=== PATIENT | female | born 1985 ===

== ENCOUNTER 2018-11-22 14:29 | Inpatient (IN) | payer OTHER ==
[2018-11-22] MEDS ORDERED: SENNOSIDES 17.6 MG/10 ML UDL PO PRN (18:51)
[2018-11-22] MEDS ORDERED: MAGNESIUM HYDROXIDE 30 ML UDCUP PO PRN (18:51)
[2018-11-22] MEDS ORDERED: ACETAMINOPHEN 325 MG TAB PO PRN (18:51)
[2018-11-22] MEDS ORDERED: MAG HYDROX/AL HYDROX/SIMETH 30 ML UDCUP PO PRN (18:51)
[2018-11-22] MEDS ORDERED: GABAPENTIN 100 MG CAP PO PRN (18:55)
[2018-11-22] MEDS ORDERED: CALCIUM CARBONATE 500 MG CHEWABLE TAB PO PRN (18:55)
[2018-11-22] MEDS ORDERED: DIAZEPAM 5 MG TAB PO ONE (18:56)
[2018-11-22] MEDS ORDERED: MAGNESIUM OXIDE 400 MG TAB PO ONE (18:57)
--- NOTE | 2018-11-22 21:29 | GHP ---
[f rep st] HISTORY AND PHYSICAL DATE OF ADMISSION: 11/22/2018 TIME OF EVALUATION: 6:15 p.m. REFERRING FACILITY: [facility]. REFERRING PHYSICIAN: Dr. Ngo IMPAIRMENT GROUP: 3.9-other neurological condition. DATE OF ONSET: 11/18/2018. POST ADMISSION PHYSICAL EVALUATION AND REHABILITATION TREATMENT PLAN: REHAB DIAGNOSIS: Gait dysfunction, lower extremity weakness. Upper and lower extremity sensory distu rbance. ETIOLOGICAL DIAGNOSIS: Weakness. HISTORY OF PRESENT ILLNESS: The patient is a 33-year-old female who was admitted to [facility] ICU on 11/18/2018, with progressive bilateral lower extremity weakness and nu mbness which began in her lower extremities sometime in September. She was noted to have had ETOH use around the holidays. She states that she has been drinking five 1 ounce drinks for at least 2 years. By medical record review, she was initially seen by a neurologist on 11/09/2018, with simil ar complaints. She could not provide any further details regarding that visit and no medical records pertaining to that visit were available. On the day of admission to [facility], she presente d with worsening paresthesias and weakness involving the upper and lower extremities with some progre ssion into the abdomen. She also noted progressive difficulty with ambulation. MRI of the brain and c ervical spine were obtained through the emergency department and were read as unremarkable, according to the medical records. Neurology consultation was obtained on 11/16/2018. A lumbar puncture was per formed and was reportedly negative. No definitive diagnosis was made pertaining to her symptoms. The patient does relate that leading up to the admission she had been increasingly sedentary due to nigel rns about falling. She had been sleeping in the downstairs floor of her house due to difficulty with stairs. She had also noted some possible decreased finger dexterity. She was participating in both ph ysical and occupational therapy sessions during the admission. She states that she has not been doing much walking. STUDIES AND LABS DURING RECENT HOSPITALIZATION: Sodium 139, potassium 3.3, glucose 168. ESR 61. C-re active protein 31. B12 level 840. Alk phosphatase 404, aspartate aminotransferase 570. Total bilirubi n 1.4. Total serum protein 8.3. White blood count 12.3, hemoglobin 10, hematocrit 3.12. Cervical spine MRI without contrast obtained 11/16/2018, unremarkable. MRI of the brain obtained 10/19, showed no significant abnormalities identified according to the radiologist's report. PRECAUTIONS FALL RISK: Seizure risk due to possible alcohol withdrawal. ACTIVE COMORBIDITIES: Type 2 diabetes, diet controlled. PAST MEDICAL HISTORY: Acid reflux. Anxiety. Hypertension. Alcohol abuse. Morbid obesity. PAST SURGICAL HISTORY: Lasix procedure. ADMISSION MEDICATIONS: B complex with vitamin C. Metoprolol succinate 50 mg XL. Thiamin 100 mg. Tracy pentin 200 mg three times daily. Calcium carbonate 200 mg p.r.n. heartburn. Nexium 20 mg p.r.n. heart burn. Ibuprofen. ALLERGIES: Macrobid. SOCIAL HISTORY: . Nonsmoker. History of alcohol abuse. Lives at home with her . 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 Reports also employed. She was completely function ally independent prior to recent hospitalization. FAMILY HISTORY: Noncontributory. REVIEW OF SYSTEMS: CARDIAC: Reports rapid heart rate. Denies chest pain. PULMONARY: Denies shortness of breath or productive cough. CONSTITUTION: Denies fever, chills, or night sweats. Denies feeling m alaise prior to onset of symptoms. SKIN: Denies rash. Denies recent travel out of the country. Denies recent immunization. : Denies urea or hematuria. Reports she is continent of bladder. GI: Reports continence of bowel. Denies abdominal pain. SKIN: Denies rash. NEUROLOGIC: Reports patchy loss of sen sation in both upper and lower extremities, slightly more pronounced in the lower extremities. Report s decreased roving winder strength. Reports weakness of both lower extremities, not described in the specific peripheral nerve root or myotomal distribution. Reports patchy decreased sensation both lower extremi ties. PHYSICAL EXAM: CONSTITUTION: WD, WN, heavyset female. Appears moderately anxious. Required assist of 2 to go from the Care[employer]tend to her bed. PSYCH: Anxious. Alert and oriented x3. NEUROLOGIC: Cranial n erves 2-12 grossly intact. Possible right nystagmus. Dysmetria noted when performing finger to nose. Upper extremity motor: She demonstrates better than antigravity strength of the shoulder girdle muscl es, biceps, triceps, and wrist and finger extensors. However, a nonphysiologic ratchety-type movement was noted. Lower extremity motor: 4/5 right and left hip flexors, quadriceps, hamstrings. 2+ to 3-/5 right and left ankle dorsiflexors. Patient noted to invert ankles when testing ankle plantar flexion , which was 3-/5. No clonus. Negative Ross's test. Patchy loss to light touch dermatomes L3-S1 bot h lower extremities, which was inconsistent on serial testing. Decreased proprioception noted in both lower extremities. HEENT: Pupils equal, round, reactive to light and accommodation. Sclerae nonicter ic. NECK: Supple. No JVD. CARDIAC: Tachycardiac at 133. Blood pressure pending. Could not appreciate murmurs, rubs, or gallops, but this may have been obscured secondary to tachycardia. Normal periphera l pulses. No lower extremity edema. ABDOMEN: Soft, nontender. The liver is palpated beneath the espana l margin. Normoactive bowel sounds all 4 quadrants. : No CVA tenderness. No suprapubic tenderness. No catheter in place. SKIN: Contact dermatitis rash noted in the perineal area. MUSCULOSKELETAL: Norm al and pain free range of motion right and left glenohumeral joints, elbows, wrists, hips, knees, and ankles. LEVEL OF FUNCTION: Per the preadmission screen. Diet/feeding/swallowing, regular diet. Grooming to b e determined, bathing to be determined. Lower body dressing moderate assist for socks. max assist to don pants. Toileting to be determined. Bladder to be determined. Bowel to be determined. Bed mobility , contact guard assist supine to sit with significant cuing. Transfers: Max assist x2 with FWW contac t guard assist. Mid-mod x2 for slide board transfer. Equipment FWW, Jazmine Fan. Balance impaired. End urance fair to good. Gait, unable to ambulate at this time. Wheelchair and stairs to be determined. C ommunication intact. Cognitive: Frequent cuing and redirection secondary to anxiety. Safety precautio ns, fall risks. Possible EtOH withdrawal risk. IMPRESSION/PLAN: 1. Gait dysfunction. Bilateral lower extremity weakness and sensory impairment of undetermined etiol ogy. Workup at [facility] included unremarkable MRIs of the brain and cervical spine. Lumbar puncture was reported as negative. Had Neurology consultation at that time, and lower extremity EMG/ nerve conduction study is recommended as outpatient. We will obtain consult for physical and occupati onal therapy to address upper and lower extremity strengthening respectively, improve gait, improve t runk strength/core strength and mobility. Address bed mobility, ability to perform transfers as well as self-care including toileting, grooming and hygiene. 2. Hypomagnesemia: Will implement supplemental magnesium and repeat level in 3 days. 3. Hypertension: Continue metoprolol succinate 50 mg XL. 4. Alcohol abuse: Encouraged continued abstinence. Will review with patient the effects of alcohol o n her neurological system. Consider Psych services evaluation for substance abuse counseling. 5. Obesity: Dietary consult. Will place on 1500 calorie ADA diet. 6. Type 2 diabetes: The patient indicates this was previously managed with diet and this was confirm ed with the case finishing machine adjuster up at [facility] today per my discussion with him. Will recheck hem oglobin A1c at some point during her hospital course. Consider starting hypoglycemics if hemoglobin A 1c is elevated. 7. Gastroesophageal reflux disease: Continue Nexium. Avoid lying supine after eating meals. 8. ? Peripheral neuropathy: Lower extremities paresthesias ? ETOH related. Continue B complex. Melody nue thiamine. Outpatient EMG/nerve conduction studies may help shed light on whether there is a senso ry and/or motor polyneuropathy. 9. Neuropathic pain: Continue gabapentin 200 mg three times daily. 10. Anxiety: The patient is quite anxious and tachycardic with heart rate at 133. She requested Ativ an. We will give a 1 time dose of 5 mg of Valium tonight. 11. Prophylaxis: a. Gastrointestinal: Continue Nexium. b. Deep venous thrombosis: With patient's age and lack of comorbid medical conditions she is at low risk for developing deep venous thrombosis and therefore will courage ambulation. Copy requested to: Joshua Shah /[id number]/MODL
[2018-11-23] MEDS: METOPROLOL SUCCINATE XR 50 MG TAB PO SCH (08:48)
[2018-11-23] MEDS: VITAMIN B COMPLEX 1 EA CAP/TAB PO SCH (08:49)
[2018-11-23] MEDS: PANTOPRAZOLE SODIUM 40 MG TAB PO SCH (08:49)
[2018-11-23] MEDS: THIAMINE HCL 100 MG TAB PO SCH (08:49)
--- NOTE | 2018-11-23 09:31 | PDOREHIP ---
Admission [facility] - Admission - 3 Day Assessment Period Admission Date/Day 1: 11/22/18 Day 2: 11/23/18 Day 3: 11/24/18 - Active Diagnoses Comorbidities and Co-existing Conditions at Admission: 96072. DM (e.g. diabetic retinopathy, nephropathy, and neuropathy) (Type 2 diabetes currently managed with diet) - Skin Conditions # Stage 1 Pressure Ulcers-Admission: 0 # Stage 2 Pressure Ulcers-Admission: 0 # Stage 3 Pressure Ulcers-Admission: 0 # Stage 4 Pressure Ulcers-Admission: 0 # Unstageable Pressure Ulcers (Non-remove Dress)-Admission: 0 # Unstageable Pressure Ulcers (Slough/Eschar)-Admission: 0 # Unstageable Pressure Ulcers (Deep Tissue Injury)-Admission: 0
--- NOTE | 2018-11-23 09:43 | SOAPPROG ---
SOAP Progress Note Assessment/Plan: Assessment: MPRESSION/PLAN: 1. Gait dysfunction. Bilateral lower extremity weakness and sensory impairment of undetermined etiology. Workup at [facility] included unremarkable MRIs of the brain and cervical spine. Lumbar puncture was reported as negative. Had Neurology consultation at that time, and lower extremity EMG/nerve conduction study is recommended as outpatient. We will obtain consult for physical and occupational therapy to address upper and lower extremity strengthening respectively, improve gait, improve trunk strength/core strength and mobility. Address bed mobility, ability to perform transfers as well as self -care including toileting, grooming and hygiene. 2. Hypomagnesemia: Will implement supplemental magnesium and repeat level in 3 days. 3. Hypertension: WILL CHANGE METOPROLOL DOSAGE TO 100 XL Q.A.M. 4. Alcohol abuse: Encouraged continued abstinence. Will review with patient the effects of alcohol on her neurological system. Consider Psych services evaluation for substance abuse counseling. 5. Obesity: Dietary consult. Will place on 1500 calorie ADA diet. 6. Type 2 diabetes: The patient indicates this was previously managed with diet and this was confirmed with the pillowcase cleaner up at [facility] today per my discussion with him. Will recheck hemoglobin A1c at some point during her hospital course. Consider starting hypoglycemics if hemoglobin A1c is elevated. GLUCOSE LEVEL 2/5 A.M. 182. WILL ORDER HEMOGLOBIN A1C THIS MORNING 7. Gastroesophageal reflux disease: Continue Nexium. Avoid lying supine after eating meals. 8. ? Peripheral neuropathy: Lower extremities paresthesias ? ETOH related. Continue B complex. Continue thiamine. WILL ORDER BLOOD WORK TODAY FOR PERIPHERAL NEUROPATHY WORKUP TO INCLUDE THYROID FUNCTION TESTS, SERUM PROTEIN ELECTROPHORESIS, GM 1 ANTIBODIES, MYELIN ASSOCIATED GLYCOPROTEIN ANTIBODIES Outpatient EMG/nerve conduction studies may help shed light on whether there is a sensory and/or motor polyneuropathy. 9. Neuropathic pain: Continue gabapentin 200 mg three times daily. 10. Anxiety: The patient is quite anxious and tachycardic with heart rate at 133. She requested Ativan. We will give a 1 time dose of 5 mg of Valium tonight. 11. Prophylaxis: Gastrointestinal: Continue Nexium. Deep venous thrombosis: With patient's age and lack of comorbid medical conditions she is at low risk for developing deep venous thrombosis and therefore will courage ambulation. Subjective: She reports that she did not sleep well last night. Otherwise no new complaints. Objective: Vital Signs Temp Pulse Resp BP Pulse Ox 36.6 C 118 H 20 144/99 H 96 11/23/18 08:00 11/23/18 08:48 11/23/18 08:00 11/23/18 08:48 11/23/18 08:00 11/22/18 11/23/18 11/24/18 05:59 05:59 05:59 Intake Total 450 Output Total 375 Balance 75 - Pending Discharge Pending Discharge Within 24 Hours: No Pending Discharge Within 48 Hours: No Physical Exam - Physical Exam General Appearance: WD/WN, alert, no apparent distress Respiratory: lungs clear, normal breath sounds Cardiac/Chest: tachycardia, No edema Abdomen: normal bowel sounds, non-tender, soft Extremities: No swelling, No Vanda's sign Neuro/Psych: alert, normal mood/affect, oriented x 3, motor weakness (Diffuse upper and lower extremity motor weakness more pronounced in lower extremities particularly ankle dorsiflexors but has 4+/5 strength of the hip flexors, abductors, adductors, quadriceps and hamstrings. Areflexic upper and lower extremities.), sensory deficit (Patchy decreased to light touch upper and lower extremities in nondermatomal pattern)
[2018-11-23] MEDS: metFORMIN HCL 500 MG TAB PO SCH (11:10)
[2018-11-23] MEDS ORDERED: METOPROLOL SUCCINATE XR 50 MG TAB PO ONE (13:30)
[2018-11-23] MEDS: IBUPROFEN 200 MG TAB PO PRN (16:10)
[2018-11-24] MEDS: IBUPROFEN 200 MG TAB PO PRN ×2 (07:54→17:24)
[2018-11-24] MEDS: PANTOPRAZOLE SODIUM 40 MG TAB PO SCH (08:33)
[2018-11-24] MEDS: VITAMIN B COMPLEX 1 EA CAP/TAB PO SCH (08:34)
[2018-11-24] MEDS: THIAMINE HCL 100 MG TAB PO SCH (08:34)
[2018-11-24] MEDS: metFORMIN HCL 500 MG TAB PO SCH (09:12)
[2018-11-24] MEDS: METOPROLOL SUCCINATE XR 50 MG TAB PO SCH (09:12)
[2018-11-24] MEDS ORDERED: traZODone 50 MG TAB PO PRN (14:30)
--- NOTE | 2018-11-24 14:47 | SOAPPROG ---
SOAP Progress Note Assessment/Plan: Assessment: Neuromuscular disorder of unclear etiology. * SPEP is pending. Evaluation at [facility] including brain MRI, C- spine MRI, CSF studies, was unrevealing. Follow-up with Neurology after discharge for EMG studies. * Initial functional independence measure is 70. Standby assist for bed mobility. Sat at the edge of bed for 10 min with independent balance. Transfers with the Jazmine Stedy require minimal assist to standby assist. She was able to stand for 10 min. She was unwilling to participate in training with a slide board. Grooming and hygiene required minimal assist. Dressing required minimal assist. She complained of hypersensitivity as well as decreased sensation in her hands. Toileting required minimal assist. Shower transfer was done with the Jazmine Stedy and a bath bench. She was independent with bathing including shampooing. * Continue PT and OT. Anxiety and insomnia. * She agrees to initiation of low-dose antidepressant/anxiolytics. Given history of alcohol abuse, benzodiazepines would be contraindicated. Will start citalopram at 5 mg p.o. Q.day and plan to titrate rapidly if it is tolerated. * Trial of melatonin at HS. Will also order trazodone if she is unable to attain sleep within 30-60 minutes of taking melatonin. Alcohol abuse. Unclear if this may contribute to neuromuscular disorder. Continue B12 and thiamine supplementation for now. Obesity. * Dietary consult. Hepatic transaminase elevation in the hospital, with AST 570, ALT 189. May also be a component of cholestasis, with total bilirubin slightly elevated at 1.4 and direct bilirubin with a more significant elevation at 0.8. Alkaline phosphatase was 405. . * May be consistent with steatohepatitis, versus alcohol use. Repeat LFTs on 11/25 to assess trend. Diabetes mellitus type 2. * Hemoglobin A1c was 5.3. Continue metformin. Hypertension. Continue metoprolol. DISPOSITION: Attended staffing, 15 min. Discussed with case management, nursing, dietitian, PT, OT. Insurance sends of improved a 7 day length of stay with a last covered day being 11/28/2018. Anticipate discharge on 11/29/2018. Extensive discussion with patient, 11/24/2018, on possible etiologies including possibility of conversion disorder, and prognosis. Denies any history of huffing nitrous oxide. Agreed to pharmacologic treatment of anxiety. Encouraged focus on improvement rather than "what if " ideation that she reports she has been having. FOLLOW-UP: She is to see neurologist Dr. Zhao Lambert after discharge. She will follow up with her primary care provider as well. 11/24/18 14:47 Subjective: Feels anxious and has not been sleeping well. Objective: Vital Signs Temp Pulse Resp BP Pulse Ox 36.7 C 117 H 20 133/94 H 96 11/24/18 05:14 11/24/18 05:14 11/24/18 05:14 11/24/18 05:14 11/24/18 05:14 11/23/18 11/24/18 11/25/18 05:59 05:59 05:59 Intake Total 450 618 Output Total 375 820 Balance 75 -202 - Time Spent With Patient Time Spent With Patient: Greater than 35 min floor time today, including more than 50% of time in coordination of care during staffing meeting, and counseling patient. Physical Exam - Physical Exam General Appearance: WD/WN, alert, mild distress, obese Respiratory: No respiratory distress, No accessory muscle use Cardiac/Chest: No edema Skin: normal color, warm/dry Neuro/Psych: alert, normal mood/affect, oriented x 3, motor weakness ICD10 Worksheet Patient Problems: Problems Problem Status Onset Neuromuscular disorder Acute - ICD10 Problem Qualifiers (1) Neuromuscular disorder
[2018-11-25] MEDS: IBUPROFEN 200 MG TAB PO PRN (06:12)
[2018-11-25] MEDS: metFORMIN HCL 500 MG TAB PO SCH ×2 (08:02→17:13)
[2018-11-25] MEDS: METOPROLOL SUCCINATE XR 50 MG TAB PO SCH (08:02)
[2018-11-25] MEDS ORDERED: CITALOPRAM 20 MG TAB PO SCH (09:00)
[2018-11-25] MEDS: PANTOPRAZOLE SODIUM 40 MG TAB PO SCH (10:00)
[2018-11-25] MEDS: THIAMINE HCL 100 MG TAB PO SCH (10:00)
[2018-11-25] MEDS: VITAMIN B COMPLEX 1 EA CAP/TAB PO SCH (10:00)
--- NOTE | 2018-11-25 13:40 | SOAPPROG ---
SOAP Progress Note Assessment/Plan: Assessment: Neuromuscular disorder of unclear etiology. * SPEP is negative for monoclonal proteins other lab tests specific to neuropathy and neuromuscular disorders are pending.. Evaluation at [facility] including brain MRI, C-spine MRI, CSF studies, was unrevealing. Follow -up with Neurology after discharge for EMG studies. * Initial functional independence measure is 70. Standby assist for bed mobility. Sat at the edge of bed for 10 min with independent balance. Transfers with the Jazmine Stedy require minimal assist to standby assist. She was able to stand for 10 min. She was unwilling to participate in training with a slide board. Grooming and hygiene required minimal assist. Dressing required minimal assist. She complained of hypersensitivity as well as decreased sensation in her hands. Toileting required minimal assist. Shower transfer was done with the Jazmine Stedy and a bath bench. She was independent with bathing including shampooing. * Continue PT and OT. Anxiety and insomnia. * Given history of alcohol abuse, benzodiazepines would be contraindicated. She declined citalopram today, 11/25/2018. Had further discussion. She agrees to trazodone at . Will order trazodone 50 mg scheduled at bedtime. * There is certainly a behavioral component to her mobility and ADL limitations. Encouraged cooperation with therapies. Encouraged her to challenge herself. Encouraged her to focus more on her day-to-day progress than on worries about future disability. Alcohol abuse. Unclear if this may contribute to neuromuscular disorder. Continue B12 and thiamine supplementation for now. Obesity. * Dietary consult. Hepatic transaminase elevation in the hospital, with AST 570, ALT 189. May also be a component of cholestasis, with total bilirubin slightly elevated at 1.4 and direct bilirubin with a more significant elevation at 0.8. Alkaline phosphatase was 405. * Labs are consistent with alcoholic hepatitis. * May be consistent with steatohepatitis, versus alcohol use. Repeat LFTs on 11/25 improving. * Ordered viral hepatitis panel. Diabetes mellitus type 2. * Hemoglobin A1c was 5.3. Continue metformin. Due to diarrhea, will change from 500 mg q.day to 250 mg twice daily starting 11/25/2017. Though she reports she was able to improve her A1c through diet and exercise, her current mobility is much decreased so continuing metformin is in her best interest regarding glycemic control Hypertension. Continue metoprolol. DISPOSITION: Insurance approved a 7 day length of stay with a last covered day being 11/28/2018. If she is making progress, may request extension. If she makes no progress then she will discharge to [facility] facility on 2018. Extensive discussion with patient, 11/24/2018, on possible etiologies including possibility of conversion disorder, and prognosis. Denies any history of huffing nitrous oxide. Agreed to pharmacologic treatment of anxiety. Encouraged focus on improvement rather than "what if " ideation that she reports she has been having. FOLLOW-UP: She is to see neurologist Dr. Zhao Lambert after discharge. She will follow up with her primary care provider as well. 11/25/18 13:33 Subjective: Poor sleep overnight. Did not take trazodone. Also not taking Celexa, metformin, pantoprazole or B vitamins. Reports that she had adverse reaction in the past to fluoxetine with "brain zaps ". Says she had some diarrhea with the metformin; was on it previously and subsequently stopped using it and improve her A1c with diet exercise and 70 lb weight loss in the past. Otherwise without complaints. Objective: Vital Signs Temp Pulse Resp BP Pulse Ox 37.2 C 108 H 17 153/104 H 94 11/25/18 06:14 11/25/18 08:02 11/25/18 06:14 11/25/18 08:02 11/25/18 06:14 11/24/18 11/25/18 11/26/18 05:59 05:59 05:59 Intake Total 618 1190 336 Output Total 820 Balance -202 1190 336 Physical Exam - Physical Exam General Appearance: WD/WN, alert, no apparent distress Respiratory: No respiratory distress, No accessory muscle use Skin: normal color, warm/dry Neuro/Psych: alert, normal mood/affect, oriented x 3 ICD10 Worksheet Patient Problems: Problems Problem Status Onset Neuromuscular disorder Acute - ICD10 Problem Qualifiers (1) Neuromuscular disorder
[2018-11-25 14:23] LABS: HEPATITIS B SURFACE ANTIGEN NEGATIVE (NEGATIVE)
[2018-11-25 14:32] LABS: HEPATITIS A ANTIBODY IGM (BCH) NEGATIVE (NEGATIVE); HEPATITIS B CORE AB IGM NEGATIVE (NEGATIVE)
[2018-11-25 14:40] LABS: HEPATITIS C ANTIBODY TOTAL NEGATIVE (NEGATIVE)
[2018-11-25] MEDS: traZODone 50 MG TAB PO SCH (21:14)
[2018-11-26] MEDS: metFORMIN HCL 500 MG TAB PO SCH ×2 (07:57→18:13)
[2018-11-26] MEDS: VITAMIN B COMPLEX 1 EA CAP/TAB PO SCH (07:58)
[2018-11-26] MEDS: PANTOPRAZOLE SODIUM 40 MG TAB PO SCH (07:58)
[2018-11-26] MEDS: METOPROLOL SUCCINATE XR 50 MG TAB PO SCH (07:58)
[2018-11-26] MEDS: THIAMINE HCL 100 MG TAB PO SCH (07:59)
--- NOTE | 2018-11-26 09:54 | SOAPPROG ---
SOAP Progress Note Assessment/Plan: Assessment: Neuromuscular disorder of unclear etiology. * SPEP is negative for monoclonal proteins other lab tests specific to neuropathy and neuromuscular disorders are pending.. Evaluation at [facility] including brain MRI, C-spine MRI, CSF studies, was unrevealing. Follow -up with Neurology after discharge for EMG studies. * Initial functional independence measure is 70. Standby assist for bed mobility. Sat at the edge of bed for 10 min with independent balance. Transfers with the Jazmine Stedy require minimal assist to standby assist. She was able to stand for 10 min. She was unwilling to participate in training with a slide board. Grooming and hygiene required minimal assist. Dressing required minimal assist. She complained of hypersensitivity as well as decreased sensation in her hands. Toileting required minimal assist. Shower transfer was done with the Jazmine Stedy and a bath bench. She was independent with bathing including shampooing. * Continue PT and OT. Anxiety and insomnia. * Given history of alcohol abuse, benzodiazepines would be contraindicated. She declined citalopram today, 11/25/2018. Had further discussion. She agrees to trazodone at . Ordered trazodone 50 mg scheduled at bedtime starting 2018, but she did not take it on the 1st night. * There is certainly a behavioral component to her mobility and ADL limitations. Encouraged cooperation with therapies. Encouraged her to challenge herself. Encouraged her to focus more on her day-to-day progress than on worries about future disability. Fall, 11/25/2018, while attempting stand-pivot transfer with PT. * Left foot pain is resolved and she can weight-bear. Will cancel XR that was ordered 11/25/2018 Tachycardia, 11/26/2018. Unclear etiology. Normal D-dimer, doubt PE. Normal CBC , doubt infection. Normal BMP but had received oral hydration. Tachycardia resolved. * Continue to encourage hydration. Alcohol abuse. Unclear if this may contribute to neuromuscular disorder. Continue B12 and thiamine supplementation for now. * She is refusing the supplements. She had a normal B12 in the hospital. Obesity. * Dietary consult. Hepatic transaminase elevation in the hospital, with AST 570, ALT 189. May also be a component of cholestasis, with total bilirubin slightly elevated at 1.4 and direct bilirubin with a more significant elevation at 0.8. Alkaline phosphatase was 405. * Labs are consistent with alcoholic hepatitis. May also have a component of steatohepatitis. * Repeat LFTs on 11/25/2018 improving. * Viral hepatitis panel was negative. Diabetes mellitus type 2. * Hemoglobin A1c was 5.3. Continue metformin. Due to diarrhea, will change from 500 mg q.day to 250 mg twice daily starting 11/25/2017. Though she reports she was able to improve her A1c through diet and exercise, her current mobility is much decreased so continuing metformin is in her best interest regarding glycemic control Hypertension. Continue metoprolol. DISPOSITION: Insurance approved a 7 day length of stay with a last covered day being 11/28/2018. If she is making progress, may request extension. If she makes no progress then she will discharge to long term facility on 2018. Extensive discussion with patient, 11/24/2018, on possible etiologies including possibility of conversion disorder, and prognosis. Denies any history of huffing nitrous oxide. Agreed to pharmacologic treatment of anxiety. Encouraged focus on improvement rather than "what if " ideation that she reports she has been having. FOLLOW-UP: She is to see neurologist Dr. Zhao Lambert after discharge. She will follow up with her primary care provider as well. 11/29/18 15:16 Subjective: She reports that her left foot became bruised last night but then the bruising went away. She says she slept well. She refused trazodone and metformin, but took metformin this morning. No cough or dyspnea. Objective: Vital Signs Temp Pulse Resp BP Pulse Ox 36.8 C 127 H 18 113/83 H 94 11/26/18 07:39 11/26/18 07:58 11/26/18 07:39 11/26/18 07:58 11/26/18 07:39 11/25/18 11/26/18 11/27/18 05:59 05:59 05:59 Intake Total 1190 1304 Output Total 600 Balance 1190 704 - Time Spent With Patient Time Spent With Patient: Greater than 35 min floor time today including review of laboratories and extensive discussion with nursing regarding how to obtain labs and encourage hydration. Physical Exam - Physical Exam General Appearance: WD/WN, alert, no apparent distress Respiratory: normal breath sounds, No crackles, No rhonchi, No wheezing Cardiac/Chest: regular rate, rhythm, tachycardia, No edema Skin: normal color, warm/dry Extremities: non-tender, calf tenderness (Left), other (Observed weight-bearing and marching in place in Jazmine Delgado) Neuro/Psych: alert, normal mood/affect, oriented x 3 ICD10 Worksheet Patient Problems: Problems Problem Status Onset Neuromuscular disorder Acute - ICD10 Problem Qualifiers (1) Neuromuscular disorder
[2018-11-26] MEDS: IBUPROFEN 200 MG TAB PO PRN (11:23)
[2018-11-26] MEDS ORDERED: NS 1,000 ML IV SCH (23:15)
[2018-11-27 00:35] LABS: PLATELET COUNT 355 10^3/uL (150-400)
[2018-11-27] MEDS: traZODone 50 MG TAB PO SCH (01:48)
[2018-11-27] MEDS: METOPROLOL SUCCINATE XR 50 MG TAB PO SCH (08:03)
[2018-11-27] MEDS: metFORMIN HCL 500 MG TAB PO SCH ×2 (08:03→16:52)
[2018-11-27] MEDS: PANTOPRAZOLE SODIUM 40 MG TAB PO SCH (08:04)
[2018-11-27] MEDS: THIAMINE HCL 100 MG TAB PO SCH (08:04)
[2018-11-27] MEDS: VITAMIN B COMPLEX 1 EA CAP/TAB PO SCH (08:04)
[2018-11-27] MEDS: IBUPROFEN 200 MG TAB PO PRN (10:52)
--- NOTE | 2018-11-27 14:01 | SOAPPROG ---
SOAP Progress Note Assessment/Plan: Assessment: 33 YO woman with atypical neurologic presentation: Neuromuscular disorder of unclear etiology. * SPEP is negative for monoclonal proteins other lab tests specific to neuropathy and neuromuscular disorders are pending.. Evaluation at [facility] including brain MRI, C-spine MRI, CSF studies, was unrevealing. Follow -up with Neurology after discharge for EMG studies. * Initial functional independence measure is 70. Standby assist for bed mobility. Sat at the edge of bed for 10 min with independent balance. Transfers with the Jazmine Stedy require minimal assist to standby assist. She was able to stand for 10 min. She was unwilling to participate in training with a slide board. Grooming and hygiene required minimal assist. Dressing required minimal assist. She complained of hypersensitivity as well as decreased sensation in her hands. Toileting required minimal assist. Shower transfer was done with the Jazmine Stedy and a bath bench. She was independent with bathing including shampooing. * Continue PT and OT. Anxiety and insomnia. * Given history of alcohol abuse, benzodiazepines would be contraindicated. She declined citalopram today, 11/25/2018. Also declines trazodone at [facility]. Fall, 11/25/2018, while attempting stand-pivot transfer with PT. * Left foot pain is resolved and she can weight-bear. XRAY L foot and knee negative for fracture 11/26. Tachycardia. 92 - 107 today. Unclear etiology. Labs from last evening 11/26: CBC : WBC 11.85. H/H 10.9/34.2. D-dimer normal 0.35. She was given a liter of fluid overnight. Declined a 2nd bolus tonight. Good PO intake and normal BUN 8 , suggest no indication for IV fluid. Leukocytosis: 11.85, (12.3 during recent acute care hospitalization) unclear etiology given extensive work up to date Alcohol abuse. Unclear if this may contribute to neuromuscular disorder. Declining B12 and thiamine supplementation. She had a normal B12 in the hospital. Obesity. * Dietary consult. Hepatic transaminase elevation in the hospital, with AST 570, ALT 189. May also be a component of cholestasis, with total bilirubin slightly elevated at 1.4 and direct bilirubin with a more significant elevation at 0.8. Alkaline phosphatase was 405. * Labs are consistent with alcoholic hepatitis. May also have a component of steatohepatitis. * Repeat LFTs on 11/25/2018 improving. * Viral hepatitis panel was negative. Diabetes mellitus type 2. * Hemoglobin A1c was 5.3. Continue metformin. Due to diarrhea, will change from 500 mg q.day to 250 mg twice daily starting 11/25/2017. Though she reports she was able to improve her A1c through diet and exercise, her current mobility is much decreased so continuing metformin is in her best interest regarding glycemic control Hypertension. Continue metoprolol. DISPOSITION: Insurance approved a 7 day length of stay with a last covered day being 11/28/2018. If she is making progress, may request extension. If she makes no progress then she will discharge to [facility] on [facility]. FOLLOW-UP: She is to see neurologist Dr. Zhao Lambert after discharge. She will follow up with her primary care provider as well. Plan: Cont Dr Nguyen's rehab treatment plan 11/27/18 14:14 Subjective: In good spirits Resting comfortably No questions or concerns No F/C/CP/SOB/N/V/D/C Objective: Vital Signs Temp Pulse Resp BP Pulse Ox 36.7 C 92 20 152/92 H 92 11/27/18 06:17 11/27/18 06:17 11/27/18 06:17 11/27/18 06:17 11/27/18 06:17 Laboratory Results 11/26/18 23:45 11/26/18 23:45 11/26/18 11/27/18 11/28/18 05:59 05:59 05:59 Intake Total 1304 300 240 Output Total 600 950 Balance 704 -650 240 Physical Exam - Physical Exam General Appearance: alert, no apparent distress Neck: supple Respiratory: lungs clear Cardiac/Chest: regular rate, rhythm, No tachycardia Abdomen: normal bowel sounds, non-tender Skin: rash (topical dermatitis 2/2 tape from blood draws and IV lines. papular, pruritic), other (eccymosis from prior blood draws throughout forearms.) Neuro/Psych: alert, normal mood/affect, oriented x 3, motor weakness, other (no acute changes) ICD10 Worksheet Patient Problems: Problems Problem Status Onset Neuromuscular disorder Acute
[2018-11-28] MEDS: IBUPROFEN 200 MG TAB PO PRN (09:02)
[2018-11-28] MEDS: METOPROLOL SUCCINATE XR 50 MG TAB PO SCH (09:03)
[2018-11-28] MEDS: PANTOPRAZOLE SODIUM 40 MG TAB PO SCH ×2 (09:03→09:13)
[2018-11-28] MEDS: VITAMIN B COMPLEX 1 EA CAP/TAB PO SCH (09:03)
[2018-11-28] MEDS: metFORMIN HCL 500 MG TAB PO SCH ×2 (09:03→18:37)
[2018-11-28] MEDS: THIAMINE HCL 100 MG TAB PO SCH ×2 (09:03→14:58)
--- NOTE | 2018-11-28 14:52 | SOAPPROG ---
SOAP Progress Note Assessment/Plan: Assessment: 33 YO woman with atypical neurologic presentation: Neuromuscular disorder of unclear etiology. * SPEP is negative for monoclonal proteins other lab tests specific to neuropathy and neuromuscular disorders are pending.. Evaluation at [facility] including brain MRI, C-spine MRI, CSF studies, was unrevealing. Follow -up with Neurology after discharge for EMG studies. * Initial functional independence measure is 70. Standby assist for bed mobility. Sat at the edge of bed for 10 min with independent balance. Transfers with the Jazmine Stedy require minimal assist to standby assist. She was able to stand for 10 min. She was unwilling to participate in training with a slide board. Grooming and hygiene required minimal assist. Dressing required minimal assist. She complained of hypersensitivity as well as decreased sensation in her hands. Toileting required minimal assist. Shower transfer was done with the Jazmine Stedy and a bath bench. She was independent with bathing including shampooing. * Continue PT and OT. Anxiety and insomnia. * Given history of alcohol abuse, benzodiazepines would be contraindicated. She declined citalopram today, 11/25/2018. Also declines trazodone at [facility]. Fall, 11/25/2018, while attempting stand-pivot transfer with PT. * Left foot pain is resolved and she can weight-bear. XRAY L foot and knee negative for fracture 11/26. Tachycardia. 92 - 107 today. Unclear etiology. Labs from last evening 11/26: CBC : WBC 11.85. H/H 10.9/34.2. D-dimer normal 0.35. She was given a liter of fluid overnight. Declined a 2nd bolus tonight. Good PO intake and normal BUN 8 , suggest no indication for IV fluid. Leukocytosis: 11.85, (12.3 during recent acute care hospitalization) unclear etiology given extensive work up to date Alcohol abuse. Unclear if this may contribute to neuromuscular disorder. Declining B12 and thiamine supplementation. She had a normal B12 in the hospital. Obesity. * Dietary consult. Hepatic transaminase elevation in the hospital, with AST 570, ALT 189. May also be a component of cholestasis, with total bilirubin slightly elevated at 1.4 and direct bilirubin with a more significant elevation at 0.8. Alkaline phosphatase was 405. * Labs are consistent with alcoholic hepatitis. May also have a component of steatohepatitis. * Repeat LFTs on 11/25/2018 improving. * Viral hepatitis panel was negative. Diabetes mellitus type 2. * Hemoglobin A1c was 5.3. Continue metformin. Due to diarrhea, will change from 500 mg q.day to 250 mg twice daily starting 11/25/2017. Though she reports she was able to improve her A1c through diet and exercise, her current mobility is much decreased so continuing metformin is in her best interest regarding glycemic control Hypertension. Continue metoprolol. DISPOSITION: Insurance approved a 7 day length of stay with a last covered day being 11/28/2018. If she is making progress, may request extension. If she makes no progress then she will [facility] to [facility]. FOLLOW-UP: She is to see neurologist Dr. Zhao Lambert after discharge. She will follow up with her primary care provider as well. Plan: Cont Dr Nguyen's rehab treatment plan 11/28/18 14:48 Subjective: had lots of questions regarding her diagnosis therapy still seeing lots of inconsistencies in her capability Pleasant and participatory No new problems or c/o's Objective: Vital Signs Temp Pulse Resp BP Pulse Ox 37.1 C 129 H 18 137/108 H 96 11/27/18 20:00 11/28/18 09:03 11/27/18 20:00 11/28/18 09:03 11/27/18 20:00 Laboratory Results 11/26/18 23:45 11/26/18 23:45 11/27/18 11/28/18 11/29/18 05:59 05:59 05:59 Intake Total 300 740 Output Total 950 Balance -650 740 ICD10 Worksheet Patient Problems: Problems Problem Status Onset Neuromuscular disorder Acute
[2018-11-29] MEDS: traZODone 50 MG TAB PO SCH ×2 (01:40→02:50)
[2018-11-29 08:02] VITALS: BP 142/107
[2018-11-29] MEDS: metFORMIN HCL 500 MG TAB PO SCH (08:51)
[2018-11-29] MEDS: METOPROLOL SUCCINATE XR 50 MG TAB PO SCH (08:54)
[2018-11-29] MEDS: THIAMINE HCL 100 MG TAB PO SCH (08:54)
[2018-11-29] MEDS: PANTOPRAZOLE SODIUM 40 MG TAB PO SCH (08:54)
[2018-11-29] MEDS: VITAMIN B COMPLEX 1 EA CAP/TAB PO SCH (08:54)
[2018-11-29] MEDS: IBUPROFEN 200 MG TAB PO PRN (10:18)
--- NOTE | 2018-11-29 15:38 | PDOREHIP ---
Admission [facility] - Admission - 3 Day Assessment Period Admission Date/Day 1: 11/22/18 Day 2: 11/23/18 Day 3: 11/24/18 - Active Diagnoses Comorbidities and Co-existing Conditions at Admission: 53243. None of the Above Discharge [facility] - Discharge - 3 Day Assessment Period 2 Days Prior to Anticipated Discharge Date: 11/27/18 1 Day Prior to Anticipated Discharge Date: 11/28/18 Anticipated Discharge Date: 11/29/18 - Discharge Skin Conditions Unhealed Pressure Ulcer (1 or more/Stage 1 or >)-Discharge: 0. No # Stage 1 Pressure Ulcers-Discharge: 0 # Stage 2 Pressure Ulcers-Discharge: 0 # of These Stage 2 Pressure Ulcers Present on Admission: 0 # Stage 3 Pressure Ulcers-Discharge: 0 # of These Stage 3 Pressure Ulcers Present on Admission: 0 # Stage 4 Pressure Ulcers-Discharge: 0 # of These Stage 4 Pressure Ulcers Present on Admission: 0 # Unstageable Pressure Ulcers (Non-remove Dress)-Discharge: 0 # These Unstageable Pressure Ulcers (NRD)-Present on Admit: 0 # Unstageable Pressure Ulcers (Slough/Eschar)-Discharge: 0 # These Unstageable Pressure Ulcers(Slough) Present on Admit: 0 # Unstageable Pressure Ulcers (Deep Tissue Injury)-Discharge: 0 # These Unstageable Pressure Ulcers (DTI) Present on Admit: 0
--- NOTE | 2018-11-29 16:23 | GDS ---
[f rep st] DISCHARGE SUMMARY ADMITTING DIAGNOSIS: Neuromuscular disorder of unclear etiology. DISCHARGE DIAGNOSIS: Neuromuscular disorder of unclear etiology. OTHER DISCHARGE DIAGNOSES: 1. Possible conversion disorder. 2. Diabetes mellitus type 2. 3. Alcohol use disorder. 4. Hypertension. 5. Obesity. PROCEDURES: She had left foot and knee x-rays. CONSULTATIONS: There were none. COMPLICATIONS: There were none. HISTORY AND HOSPITAL COURSE: This patient was admitted from [facility] in [place], [place], where she had presented on 11/18/2018, with gait dysfunction and lower extremity weakness. She had extensive evaluation in the hospital including spinal and brain imaging, lab workup, and lumbar puncture. There was no etiology established, and plan was for her to follow up with Neurology in the future for EMG studies. She had been drinking increased alcohol in the period of several weeks prior to her admission. She was otherwise medically stable and ready for rehabilitation. She had minimal progress in rehabilitation. She used a Jazmine Stedy or a Ariel lift for transfers. She was able to stand for as long as 10 minutes with the Jazmine Stedy or in parallel bars, but was not able to ambulate further than approximately 10 steps with maximal assistance. She fell during an attempt to transfer with Physical Therapy and had pain in her left foot. X-rays were obtained of the left knee and the left foot, which ruled out fractures. She was able to accomplish grooming and hygiene seated at the sink with setup, but she required assistance for brushing her hair and putting her hair into a ponytail. She was able to use a spoon and fork for eating with built-up handles , but she needed assistance with opening containers. Upper body dressing required setup and standby assist. Lower body dressing required moderate assist. Seated balance required standby assist. Toileting required moderate assist. Serum protein electrophoresis was done while she was in the rehabilitation unit , and it was negative for monoclonal proteins. Test results for GM 1 antibodies and myelin associated glycoprotein antibodies are pending at the time of discharge. She had considerable anxiety and insomnia, and she had behavioral issues including splitting and intermittent refusal of medications. She was offered citalopram for anxiety, but she declined it. She was offered trazodone for sleep and she declined it. Regarding alcohol use disorder, she came to rehabilitation with prescriptions for thiamine and B12, and these were decline also. She had an episode of tachycardia with heart rate in the 120s. She had an evaluation including a CBC, a BMP and a D-dimer. She needed extra oral hydration to facilitate lab draws. These studies were negative for infection, dehydration, or excessive coagulation in the body. Tachycardia improved after hydration. There was no indication for a chest CT to rule out pulmonary embolus. She had hepatic transaminase elevation in the hospital with AST of 570 and ALT of 189. These were re-checked in the rehabilitation unit on 11/25/2018, and they had improved to 325 with AST, and 115 for the ALT. This ratio was consistent with alcoholic hepatitis. She had a negative evaluation for viral hepatitis. She reported her diabetes mellitus had been controlled with diet and weight loss. She had elevated blood sugars, though hemoglobin A1c was 5.3. With her neuromuscular disorder, she had much reduced activity, so she was begun on metformin. Initially, she was started at 500 mg daily, but this caused diarrhea. It was changed to 250 mg twice daily on 11/25/2018. She has tolerated this well, and fasting blood sugars over the past 3 days have been in the range of 133-153. Hypertension was adequately controlled with metoprolol, though blood pressure on the day of discharge was 142/107 . Might consider addition of a diuretic or alternate first-line agent such as an PAUL inhibitor or an ARB or a calcium channel elvira. Given her minimal progress in rehabilitation and uncertainty as to her diagnosis , she was no longer appropriate to remain on the inpatient rehabilitation unit. Arrangements were made for transfer to a [facility] facility until the EMG studies and psychiatry consult could be accomplished to establish her diagnosis and optimal treatment plan. DISCHARGE PLAN: Disposition is [facility] in [place], [place]. Discharge condition is good, though she remains quite debilitated with weakness of the lower extremities greater than the upper extremities. ACTIVITY: Ad sherly, though she needs assistance and use of a Jazmine Stedy for or Ariel Lift for transfers. She is at the supervision level for wheelchair mobility. ALLERGIES: There are no new drug allergies. She has the historic drug allergies to nitrofurantoin and penicillin. MEDICATIONS ON DISCHARGE: 1. Acetaminophen 650 mg p.o. q.4 hours p.r.n. 2. Metformin 250 mg p.o. b.i.d. with meals. 3. Metoprolol 50 mg p.o. daily. 4. Ibuprofen 400 mg p.o. q.6 hours p.r.n. 5. Esomeprazole 20 mg p.o. daily. ISSUES TO BE ADDRESSED AT FOLLOWUP: 1. Neuromuscular disorder versus conversion disorder. She will have further evaluation by Neurology and Psychiatry. 2. Diabetes mellitus type 2. Continue metformin. 3. Hypertension. Continue metoprolol and consider addition of other agents. 4. Tachycardia of unclear etiology with infection, dehydration, and pulmonary embolus ruled out by lab testing. Greater than 35 minutes was spent on the discharge summary, including medication reconciliation, coordination of care, and counseling of the patient. Copy requested to: Paige Lambert Attending Physician [facility] [place], [place] /[id number]/MODL MTDD
== END 2018-11-29 16:26 | DRG 92 ==
LOC: BREH 17:58
PROVIDERS: ADMIT Internal Medicine Hospice and Palliative Medicine; ATTEND Internal Medicine Hospice and Palliative Medicine
PROC: F07M3ZZ Motor Function Treatment of Musculoskeletal System - Whole Body (ICD-10-PCS; principal; 2018-11-22)
PROC: F0636ZZ Communicative/Cognitive Integration Skills Treatment of Neurological System - Whole Body (ICD-10-PCS; principal; 2018-11-22)
PROC: F08Z7ZZ Vocational Activities and Functional Community or Work Reintegration Skills Treatment (ICD-10-PCS; principal; 2018-11-22)
DX: R26.89 Other abnormalities of gait and mobility (principal); R53.1 Weakness; R20.2 Paresthesia of skin; M79.2 Neuralgia and neuritis, unspecified; E83.42 Hypomagnesemia; E11.9 Type 2 diabetes mellitus without complications; E66.01 Morbid (severe) obesity due to excess calories; Z68.41 Body mass index [BMI] 40.0-44.9, adult; F10.10 Alcohol abuse, uncomplicated; K21.9 Gastro-esophageal reflux disease without esophagitis; F41.9 Anxiety disorder, unspecified; I10 Essential (primary) hypertension; G47.00 Insomnia, unspecified; R00.0 Tachycardia, unspecified
CPT/HCPCS: 83520-90; 97110-GO; 97110-GP; 97112-GO; 97162-GP; 97166-GO; 97530-GO; 97530-GP; 97535-GO; G0472